=== PATIENT | female | born 1990 | race Caucasian/White ===

== ENCOUNTER → 2017-10-18 16:17 | Outpatient (CLI) | payer OTHER, SELFPAY ==
[2017-10-18 17:59] LABS: Absolute Lymphocyte Count 2.83 X10^3/ul (0.83-4.51); Absolute Neutrophil Count 7.1 X10^3/uL (2.0-7.7); Eosinophil# 0.06 X10^3/uL; Eosinophils% 0.6 % (0-5); Hemoglobin 11.2 g/dl (12.0-15.0); Lymphocyte # 2.83 X10^3/ul (4.0); Lymphocyte % 27.3 % (19-41); Mean Corpuscular Hgb 26.1 pg (27.0-32.0); Mean Corpuscular Volume 81.6 fL (81-99); Monocyte# 0.36 X10^3/uL; Monocyte% 3.5 % (0-10); Neutrophil # 7.11 X10^3/uL (2.7-7.7); Neutrophil % 68.4 % (47-70); POSITIVE COUNT NO; POSITIVE DIFFERENTIAL NO; POSITIVE MORPHOLOGY NO; Platelet Count 231 K/mm3 (150-450); RBC Distribution Width CV 16.1 % (11.6-14.6); RBC Distribution Width SD 47.9 fl (35.1-43.9); Red Blood Count 4.29 M/mm3 (4.2-5.4); White Blood Count 10.4 K/mm3 (4.4-11.0)
[2017-10-18 18:17] LABS: Color, Urine Yellow (Yellow); Glucose, Dipstick Normal (Normal); Ketone-Dipstick Negative (Negative); Leukocyte Esterase-Dipstick 500 /ul (Negative); Nitrite-Dipstick Negative (Negative); Occult Blood-Urine Negative /ul (Negative); Protein-Dipstick Negative (Negative); Urine Bilirubin Dipstick Negative (Negative); Urine Clarity Turbid (Clear); Urine Urobilinogen Normal (Normal)
[2017-10-18 18:19] LABS: Thyroid Stim Hormone (TSH) 3.73 uIU/mL (0.358-3.74)
[2017-10-18 18:55] LABS: HIV - WCH Non-Reactive (Nonreactive); Rubella IgG 14.3 IU/mL
[2017-10-20 07:13] LABS: HEPATITIS B SURFACE AG Negative (Negative); Hep C Antibodies <0.1 s/co ratio (0.0-0.9)
[2017-10-24 01:48] LABS: Prenatal RPR NONREACTIVE (NONREACTIVE)
== END ==
PROVIDERS: Visit Provider Obstetrics & Gynecology
DX: Z34.81 Encounter for supervision of other normal pregnancy, first trimester (principal)
CPT/HCPCS: 36415; 81002; 84443; 85025; 86703; 86762; 86803; 87340

== ENCOUNTER → 2018-03-04 14:13 | Outpatient (CLI) | payer OTHER, SELFPAY ==
[2018-03-04 15:51] LABS: Hematocrit 28.8 % (37-47); Hemoglobin 9.3 g/dl (12.0-15.0); Mean Corp Hgb Conc 32.3 g/gl (32-36); Mean Corpuscular Hgb 28.2 pg (27.0-32.0); Mean Corpuscular Volume 87.3 fL (81-99); Mean Platelet Vol. 11.6 fl (6.2-12.0); Platelet Count 189 K/mm3 (150-450); RBC Distribution Width CV 15.8 % (11.6-14.6); RBC Distribution Width SD 48.5 fl (35.1-43.9); White Blood Count 8.8 K/mm3 (4.4-11.0)
[2018-03-04 15:53] LABS: Glucose Challenge Gest 1H 50g 166 mg/dL (70-140)
[2018-03-04 15:55] LABS: Scan Indicated on CBC? Y/N NO
== END ==
PROVIDERS: Visit Provider Obstetrics & Gynecology
DX: Z34.83 Encounter for supervision of other normal pregnancy, third trimester (principal)
CPT/HCPCS: 36415; 82950; 85027; 86850

== ENCOUNTER → 2018-03-21 10:00 | Outpatient (CLI) | payer OTHER, SELFPAY ==
[2018-03-21 11:43] LABS: Glucose GTT-Gestation. Fasting 95 mg/dL (<105)
[2018-03-21 12:02] LABS: Glucose GTT-Gestational 1 Hr 230 mg/dL (<190)
[2018-03-21 14:04] LABS: Glucose GTT-Gestational 3 Hr 170 L (<145)
[2018-03-21 14:05] LABS: Glucose GTT-Gestational 2 Hr 162 mg/dL (<165)
== END ==
PROVIDERS: Family Provider Physician Assistant; PCP Physician Assistant; Visit Provider Obstetrics & Gynecology
DX: Z34.83 Encounter for supervision of other normal pregnancy, third trimester (principal); O24.912 Unspecified diabetes mellitus in pregnancy, second trimester; Z3A.00 Weeks of gestation of pregnancy not specified
CPT/HCPCS: 36415; 82951; 82952

== ENCOUNTER 2018-03-31 17:00 | Outpatient (RCR) | payer OTHER, SELFPAY | END 2018-04-01 23:59 | disposition home or self-care (01) | LOC: DC 17:00 | PROVIDERS: Family Provider Physician Assistant; PCP Physician Assistant; Visit Provider Obstetrics & Gynecology | DX: O24.410 Gestational diabetes mellitus in pregnancy, diet controlled (principal); Z71.3 Dietary counseling and surveillance | CPT/HCPCS: 97802; G0108 ==

== ENCOUNTER 2018-04-20 08:22 | Outpatient (RCR) | payer OTHER, SELFPAY | END 2018-05-06 23:59 | LOC: DC 08:22 | PROVIDERS: Family Provider Physician Assistant; PCP Physician Assistant; Visit Provider Obstetrics & Gynecology | DX: O24.410 Gestational diabetes mellitus in pregnancy, diet controlled (principal); Z71.3 Dietary counseling and surveillance ==

== ENCOUNTER → 2018-05-03 16:30 | Outpatient (CLI) | payer OTHER, SELFPAY ==
[2018-05-04 13:33] LABS: Group B Strep DNA By PCR Negative (Negative); Internal Control PASS; Probe Check PASS; Specimen Processing Control PASS
== END ==
PROVIDERS: Visit Provider Obstetrics & Gynecology
DX: Z36.85 Encounter for antenatal screening for Streptococcus B (principal)
CPT/HCPCS: 87081; 87653

== ENCOUNTER 2018-05-19 05:50 | Inpatient (IN) | payer OTHER, SELFPAY ==
[2018-05-18 16:56] VITALS: BMI 36.1
[2018-05-18 17:54] LABS: Hematocrit 33.1 % (37-47); Hemoglobin 10.6 g/dl (12.0-15.0); Mean Corpuscular Hgb 29.8 pg (27.0-32.0); Mean Platelet Vol. 12.5 fl (6.2-12.0); Platelet Count 132 K/mm3 (150-450); RBC Distribution Width CV 18.1 % (11.6-14.6); RBC Distribution Width SD 61.7 fl (35.1-43.9); Red Blood Count 3.56 M/mm3 (4.2-5.4); White Blood Count 7.8 K/mm3 (4.4-11.0)
[2018-05-18 18:08] LABS: Scan Indicated on CBC? Y/N NO
[2018-05-19] VITALS (28 sets, daily range): BP systolic 96–123; BP diastolic 48–69; PULSE 68–103; RESP 14–22; TEMP 36.1–37.1; O2SAT 96–99; BMI 36.1
[2018-05-19] MEDS: Lactated Ringers 1,000 ML 999 ML IV (05:55)
[2018-05-19 06:10] LABS: Bedside Glucose 106 mg/dL (70-110)
[2018-05-19] MEDS: Lactated Ringers 1,000 ML 150 ML IV (06:54)
[2018-05-19] MEDS: Sodium Citrate/Citric Acid 30 ML UDC PO (06:55)
[2018-05-19] MEDS: Cefazolin 2 GM in 0.9% Normal Saline 100 ML IV (07:15)
--- NOTE | 2018-05-19 07:34 | OP.PCM_ITS ---
Operative Report Date of Procedure: 05/19/18 Surgeon: Julian Paul MD, FACOG Engine House Helper: ISHA Kwan Anesthesia: Chapis Palma MD Anesthesia: Spinal with Duramorph Pre-op Diagnosis: Prior Section Post-Op Diagnosis: Prior Section Procedure: Repeat Low Transverse Cervical Caesarean Section Findings: Viable female with Apgars of 8/9 in an occiput anterior presentation with moderately stained meconium amniotic fluid and normal three- vessel placenta. Indication: This is a 28-year-old who presents for her kind at 39+ weeks gestation. care has otherwise been uneventful except for diet controlled gestational diabetes. The patient has been counseled regarding the risk and indications of this procedure including the possibility of bleeding infection and injury to surrounding structures such as bowel bladder. All questions were answered. Procedure: Patient was taken to the operating room where after spinal anesthesia was placed, the patient was prepped and draped in usual sterile fashion and a Muñoz catheter was placed. The abdomen was entered through the patient's prior Pfannenstiel incision and peritoneum was entered bluntly. After developing a bladder flap on the lower uterine segment a low transverse incision was made on the uterus and head was easily delivered onto the operative field the nose mouth and oropharynx were bulb suctioned. Subsequently a viable female infant was born with Apgars of 8/9. The infant was noted to cry move all extremities vigorously on the operative field. The umbilical cord was doubly clamped and ligated and infant handed to the nursery personnel who were present for the delivery. Placenta was delivered and noted to be 3 vessels and normal. Uterus was exteriorized and remaining placental tissue was removed. The uterus was then closed in 2 layers first with running locked 0 Vicryl suture followed by a second imbricating layer with 0 Vicryl suture. 0 Vicryl suture was then used in a horizontal mattress interrupted fashion to affect final hemostasis of the uterine incision line. Normal fallopian tubes and ovaries were visualized and the uterus was returned to the pelvis. Hemostasis was noted and rectus abdominis muscles were reapproximated in the midline with interrupted Number 0 Vicryl suture in a horizontal mattress fashion. Fascia was closed with running Number 1 PDS Strata fix suture. Subcutaneous tissue was irrigated with copious amouts of saline solution and then closed with running 3-0 Vicryl suture. Skin was closed with 4-0 monocryl suture in a running subcuticular fashion. Steri strips, telfa, and tape were placed across the incision. The patient tolerated the procedure well and was taken to the recovery room in satisfactory condition. Sponge, needle, and instrument counts were all reportedly correct. EBL was less than 500 cc. Ancef 2 gms IV was given prior to the procedure. Spicemen to Pathology: None Complications: None
--- NOTE | 2018-05-19 07:35 | DCINST_ITS ---
Discharge Diet: No Restrictions Discharge Activity: May not drive while taking narcotic pain medications., May Shower, May Take a Tub Bath May resume sexual activity in: 4-6 weeks Lifting Restrictions: 20 pounds Additional Activity Instructions:: Nothing in the vagina for 4-6 weeks. You may return to work/school in 6 weeks. Call your doctor if your incision/area has: Continuous Slow Oozing, Sudden Increased Bleeding, Increased Pain/ Swelling, Increased Redness, Foul Smelling Discharge Call your doctor if you observe: Fever of 101 or Higher, Inability to urinate, Inability to have a bowel movement, Using more than one pad per hour Additional Instructions: If you experience any of the following, contact your healthcare provider. * Bleeding that soaks a pad every hour for 2 hours * Unrelieved incision or abdominal pain * Swelling, redness, discharge or bleeding from your incision or episiotomy site * Your incision begins to separate * Problems urinating (including inability to urinate or burning while urinating) . * Visual changes * Severe headache * Flu-like symptoms * Pain or redness in one of both of your breasts * Pain, warmth, tenderness or swelling in your legs, especially the calf area * Frequent nausea and vomiting * Symptoms of depression or anxiety If you experience any of the following, call 911 or go to the nearest Emergency Room. * Chest pain * Problems breathing * Seizure activity * Partial or complete paralysis of a body part, slurred speech, weakness or drooping of the face, or a sudden inability to walk or hold your balance Allergies/Adverse Reactions: Allergies No Known Allergies Allergy (Verified 08/15/14 12:15) Medications to take at Discharge Ondansetron [Zofran] 8 mg PO Q8H PRN PRN 08/15/14 Vits [Prenatabs FA ] 1 tablet PO DAILY 08/15/14 Sertraline HCl [Zoloft] 100 mg PO DAILY 08/15/14 Ferrous Sulfate [Iron] 325 mg PO DAILY 05/18/18 Docusate Sodium [Colace] 100 mg PO BID PRN PRN #60 cap 05/19/18 Oxycodone [Oxyir] 5 mg PO Q6H PRN PRN 7 Days #20 tab 05/19/18 The following prescriptions were given: Oxycodone [Oxyir] 5 mg PO Q6H PRN PRN 7 Days #20 tab PRN Reason: Severe Pain (6-06/15) Docusate Sodium [Colace] 100 mg PO BID PRN PRN #60 cap PRN Reason: Constipation Follow-Up: Call to make an appointment with your doctor for an incision check in 1-2 weeks. You will also need a 6 week post- follow up appointment. Test results from this visit will be discussed in further detail at your follow- up appointment, if applicable. Please Follow Up With: Julian Paul MD - [phone] When: Call to make an appointment for an incision check in 2 weeks. Primary Care Physician: Elida Gonzalez PA [Primary Care Provider] -
[2018-05-19 09:10] LABS: Bedside Glucose 129 mg/dL (70-110)
[2018-05-19] MEDS: Lactated Ringers 1,000 ML 100 ML IV ×2 (09:11→18:50)
--- NOTE | 2018-05-19 11:47 | NURSING ---
moderate sized clot noted with assessment. fundus at umbilicus, firms with massage. complains of nausea with movement that improves when still.
--- NOTE | 2018-05-19 11:51 | NURSING ---
small clot noted with fundal massage. fundus firm and 1 below umbilicus. tolerated well. family at bedside
[2018-05-19] MEDS: Nalbuphine 10 MG/ML Ampul 5 MG IV ×2 (13:42→17:30)
[2018-05-19] MEDS: Ondansetron 4 MG/2 ML Vial IV (13:49)
[2018-05-19] MEDS: Ketorolac 30 MG/ML Syringe IV ×2 (14:44→21:09)
[2018-05-19] MEDS: 0.9% Saline Lock 10 ML Syringe IV ×2 (14:44→21:09)
[2018-05-19] MEDS: Cefazolin 1 GM/50 ML BAG IV ×2 (14:45→23:38)
--- NOTE | 2018-05-19 19:38 | NURSING ---
[id number] completed and pad changed for small amount old red. no clots noted. tolerated well
[2018-05-19] MEDS: Sertraline 100 MG Tablet PO (22:26)
[2018-05-20 01:15] VITALS: BP 98/50; PULSE 95; RESP 16; TEMP 36.1; O2SAT 98
[2018-05-20 03:00] VITALS: PULSE 97; RESP 18; O2SAT 98
[2018-05-20] MEDS: Ketorolac 30 MG/ML Syringe IV ×3 (03:05→15:24)
[2018-05-20 05:00] VITALS: BP 114/70; PULSE 78; PULSE 81; RESP 18; TEMP 36; O2SAT 97; O2SAT 98
[2018-05-20 06:55] LABS: Bedside Glucose 92 mg/dL (70-110)
[2018-05-20 07:02] LABS: Hematocrit 26.6 % (37-47); Hemoglobin 8.5 g/dl (12.0-15.0); Mean Corpuscular Hgb 30.5 pg (27.0-32.0); Mean Corpuscular Volume 95.3 fL (81-99); Mean Platelet Vol. 12.1 fl (6.2-12.0); Platelet Count 90 K/mm3 (150-450); RBC Distribution Width CV 18.4 % (11.6-14.6); RBC Distribution Width SD 60.8 fl (35.1-43.9); Red Blood Count 2.79 M/mm3 (4.2-5.4); White Blood Count 7.2 K/mm3 (4.4-11.0)
[2018-05-20 07:04] LABS: Scan Indicated on CBC? Y/N NO
[2018-05-20] MEDS: oxyCODONE 5 MG Tablet PO ×4 (07:44→23:34)
[2018-05-20 07:45] VITALS: BP 111/58; PULSE 85; RESP 16; TEMP 36.8
[2018-05-20] MEDS: Senna/Docusate Sodium 1 Tablet PO (07:45)
--- NOTE | 2018-05-20 08:41 | PCM.PN.OB ---
Subjective: Patient without complaints. Tolerating diet well. Pain well controlled. - Physical Exam Vital Signs AF, VSS Temp Pulse Resp BP Pulse Ox 98.2 F 85 16 111/58 L 98 05/20/18 07:45 05/20/18 07:45 05/20/18 07:45 05/20/18 07:45 05/20/18 05:00 Oxygen Delivery Method Room Air Weight: 191 lb 6.4 oz Body Mass Index (BMI) 36.1 Intake and Output for Last 24 Hours 05/18/18 05/19/18 05/20/18 23:59 23:59 23:59 Intake Total 2437 / 2437 350 / 350 Output Total 900 / 900 800 / 800 Balance 1537 / 1537 -450 / -450 Laboratory Tests Past 24 Hrs 05/19/18 05/20/18 09:55 06:45 WBC 7.2 RBC 2.79 L Hgb 8.5 L Hct 26.6 L MCV 95.3 MCH 30.5 MCHC 32.0 RDW 18.4 H RDW Differential 60.8 H Plt Count 90 L MPV 12.1 H Screen NEGATIVE Baby's Blood Type O POSITIVE Baby's CHEKO NEGATIVE POC Glucose 05/20/18 05/19/18 06:36 09:05 POC Glucose 92 129 H Wound is clean, dry, intact. Good urine output. Hemoglobin okay. Medical Necessity - Tobacco Use Smoking Status: Never smoker Assessment/Plan Doing well postoperative day #1 status post repeat . Continuing present care.
[2018-05-20] MEDS: 0.9% Saline Lock 10 ML Syringe IV ×2 (09:46→15:24)
[2018-05-20 14:00] VITALS: BP 104/71; PULSE 90; RESP 16; TEMP 36.8
[2018-05-20 20:40] VITALS: BP 99/53; PULSE 86; RESP 18; TEMP 36.8; O2SAT 95
[2018-05-20] MEDS: Ibuprofen 600 MG Tablet PO (21:21)
[2018-05-20] MEDS: Sertraline 100 MG Tablet PO (21:22)
[2018-05-21] MEDS: Acetaminophen 500 MG Tablet 1000 MG PO (01:34)
[2018-05-21 01:48] VITALS: BP 100/59; PULSE 72; RESP 16; TEMP 37; O2SAT 93
[2018-05-21] MEDS: Ibuprofen 600 MG Tablet PO (07:52)
[2018-05-21 08:52] VITALS: BP 114/67; PULSE 81; RESP 16; TEMP 36.9; O2SAT 97
[2018-05-21] MEDS: oxyCODONE 5 MG Tablet PO (09:34)
[2018-05-21] MEDS: Sertraline 100 MG Tablet PO (09:35)
--- NOTE | 2018-05-21 09:48 | PCM.PN.OB ---
Subjective: Patient without complaints. Tolerating diet well. Positive flatus. Ready to go home today. - Physical Exam Vital Signs Temp Pulse Resp BP Pulse Ox 98.4 F 81 16 114/67 97 05/21/18 08:52 05/21/18 08:52 05/21/18 08:52 05/21/18 08:52 05/21/18 08:52 Oxygen Delivery Method Room Air Weight: 191 lb 6.4 oz Body Mass Index (BMI) 36.1 Intake and Output for Last 24 Hours 05/19/18 05/20/18 05/21/18 23:59 23:59 23:59 Intake Total 2437 / 2437 350 / 350 Output Total 900 / 900 1200 / 1200 Balance 1537 / 1537 -850 / -850 Medical Necessity - Tobacco Use Smoking Status: Never smoker Assessment/Plan Doing well postoperative day #2 status post repeat . Will release to home today with routine instructions.
[2018-05-21 09:50] VITALS: BP 114/67; PULSE 81; RESP 16; TEMP 36.9; O2SAT 97
== END 2018-05-21 09:40 | disposition home or self-care (01) | DRG 766 ==
PROVIDERS: Admitting Provider Obstetrics & Gynecology; Family Provider Physician Assistant; PCP Physician Assistant; Visit Provider Obstetrics & Gynecology
PROC: 10D00Z1 Extraction of Products of Conception, Low, Open Approach (ICD-10-PCS; CPT 59514; principal; 2018-05-19 07:15)
DX: O34.211 Maternal care for low transverse scar from previous cesarean delivery (principal); Z37.0 Single live birth; O24.420 Gestational diabetes mellitus in childbirth, diet controlled; O77.0 Labor and delivery complicated by meconium in amniotic fluid; Z3A.39 39 weeks gestation of pregnancy
CPT/HCPCS: 82962; 85027; 85461; 86850; 86900; 90384; 99218; J7120; A4216; G0378; J2405; J2790

== ENCOUNTER → 2019-08-16 10:02 | Outpatient (CLI) | payer OTHER, SELFPAY ==
[2019-08-16 14:26] LABS: Chlamydia Trachomatis by PCR Negative (Negative); Neisserai gonorrhoeae by PCR Negative (Negative); Probe Check PASS; Sample Adequacy Control PASS; Specimen Processing Control PASS
[2019-08-18 17:06] LABS: HPV Reflexed? NOT INDICATED
== END ==
PROVIDERS: Visit Provider Obstetrics & Gynecology
DX: Z12.4 Encounter for screening for malignant neoplasm of cervix (principal); Z11.3 Encounter for screening for infections with a predominantly sexual mode of transmission
CPT/HCPCS: 87491; 87591; 88175; G0145

== ENCOUNTER → 2019-09-14 15:40 | Outpatient (CLI) | payer OTHER, SELFPAY ==
[2018-05-19 08:15] VITALS: BMI 36.1
[2019-09-14 16:58] LABS: Absolute Lymphocyte Count 2.12 X10^3/uL (0.83-4.51); Absolute Neutrophil Count 6.7 X10^3/uL (2.0-7.7); Basophil# 0.02 X10^3/uL; Basophil% 0.2 % (0-1); Eosinophil# 0.06 X10^3/uL; Eosinophils% 0.7 % (0-5); Hematocrit 35.2 % (37-47); Hemoglobin 11.2 g/dL (12.0-15.0); Lymphocyte # 2.12 X10^3/ul (4.0); Mean Corp Hgb Conc 31.8 g/dL (32-36); Mean Corpuscular Hgb 25.6 pg (27.0-32.0); Mean Corpuscular Volume 80.5 fL (81-99); Mean Platelet Vol. 12.3 fl (6.2-12.0); Monocyte# 0.31 X10^3/uL; Monocyte% 3.4 % (0-10); NRBC Flagged by Analyzer 0 % (0-5); Neutrophil # 6.66 X10^3/uL (2.7-7.7); Neutrophil % 72.4 % (47-70); Platelet Count 187 K/mm3 (150-450); RBC Distribution Width CV 17.1 % (11.6-14.6); RBC Distribution Width SD 49.9 fl (35.1-43.9); Red Blood Count 4.37 M/mm3 (4.2-5.4); White Blood Count 9.2 K/mm3 (4.4-11.0)
[2019-09-14 17:07] LABS: Color, Urine Yellow (Yellow); Glucose, Dipstick Normal (Normal); Ketone-Dipstick 5 mg/dl (Negative); Leukocyte Esterase-Dipstick 100 /ul (Negative); Nitrite-Dipstick Negative (Negative); Occult Blood-Urine Negative /ul (Negative); Protein-Dipstick Negative (Negative); Specific Gravity, Urine 1.025 (1.002-1.030); Urine Bilirubin Dipstick Negative (Negative); Urine Clarity Clear (Clear); Urine Urobilinogen Normal (Normal)
[2019-09-14 17:19] LABS: Thyroid Stim Hormone (TSH) 2.26 uIU/mL (0.358-3.74)
[2019-09-15 10:33] LABS: HIV - WCH Non-Reactive (Nonreactive); Hepatitis B Surface Antigen Non-Reactive (Nonreactive); Hepatitis C Antibody Non-Reactive (Nonreactive); Rubella IgG 9.4 IU/mL
[2019-09-21 02:55] LABS: Prenatal RPR NONREACTIVE (NONREACTIVE)
== END ==
PROVIDERS: Visit Provider Obstetrics & Gynecology
DX: Z34.81 Encounter for supervision of other normal pregnancy, first trimester (principal)
CPT/HCPCS: 36415; 81002; 84443; 85025; 86703; 86762; 86803; 87340

== ENCOUNTER → 2020-01-30 10:01 | Outpatient (CLI) | payer OTHER, SELFPAY ==
[2020-01-30 10:43] LABS: Glucose GTT-Gestation. Fasting 93 mg/dL (<105)
[2020-01-30 11:44] LABS: Glucose GTT-Gestational 1 Hr 199 mg/dL (<190)
[2020-01-30 13:21] LABS: Glucose GTT-Gestational 2 Hr 190 mg/dL (<165)
[2020-01-30 14:16] LABS: Glucose GTT-Gestational 3 Hr 173 L (<145)
== END ==
PROVIDERS: Visit Provider Obstetrics & Gynecology
DX: Z34.83 Encounter for supervision of other normal pregnancy, third trimester (principal)
CPT/HCPCS: 36415; 82951; 82952

== ENCOUNTER 2020-02-21 15:30 | Outpatient (RCR) | payer OTHER, SELFPAY | END 2020-02-21 23:59 | disposition home or self-care (01) | LOC: DC 15:30 | PROVIDERS: Visit Provider Obstetrics & Gynecology | DX: Z71.3 Dietary counseling and surveillance (principal); O24.419 Gestational diabetes mellitus in pregnancy, unspecified control; Z3A.00 Weeks of gestation of pregnancy not specified | CPT/HCPCS: 97802 ==

== ENCOUNTER 2020-03-12 12:05 | Outpatient (CLI) | payer OTHER, SELFPAY ==
[2020-03-12 12:23] VITALS: BMI 40.6
[2020-03-12 12:32] VITALS: BP 110/73; PULSE 107
[2020-03-12 12:47] VITALS: BP 110/73; PULSE 107; TEMP 37.1; O2SAT 96
[2020-03-12 15:06] LABS: Bedside Glucose 75 mg/dL (70-110)
--- NOTE | 2020-03-13 19:43 | OB.TRI.NOTE ---
History of Present Illness Was patient seen by the physician?: No Reason For Visit: Non-reassuring FHTs Date of Service: 03/12/20 Final ELTON: 04/12/20 Final ELTON Source: US <20 weeks Gestational age: 35 Weeks and 4 Days History of Present Illness: 29-year-old G2, P1 at 35+ weeks gestation moderate in the office for polyhydramnios and noted to have multiple late decelerations. She was sent to labor delivery or for extended monitoring. care remarkable for a prior section. Patient is also a well-controlled by diet gestational diabetic. Allergies No Known Allergies Allergy (Verified 03/12/20 12:27) Laboratory Studies: Laboratory Tests 03/12/20 Range/Units 14:59 POC Glucose 75 (70-110) mg/dL Physical Exam Vitals: Vital Signs Temp Pulse BP Pulse Ox 98.8 F 107 H 110/73 96 03/12/20 12:47 03/12/20 12:47 03/12/20 12:47 03/12/20 12:47 NST - FHR Rate Baby A NST Reactive:: Yes FHR Category:: Category I Impression/Plan 35+ week intrauterine with nonreassuring heart tones in the office who after extended monitoring showed no additional nonreassuring tracing. Patient is to return to the office the day after her visit to labor and delivery for repeat nonstress test and biophysical profile. Instructions given to call if there is any reduction in movement.
== END 2020-03-12 15:35 | disposition home or self-care (01) ==
LOC: WPOUT 12:17 → WP 12:17
PROVIDERS: PCP Physician Assistant; Referring Provider Obstetrics & Gynecology; Visit Provider Obstetrics & Gynecology
DX: O40.3XX0 Polyhydramnios, third trimester, not applicable or unspecified (principal); O36.8330 Maternal care for abnormalities of the fetal heart rate or rhythm, third trimester, not applicable or unspecified; O24.410 Gestational diabetes mellitus in pregnancy, diet controlled; Z98.891 History of uterine scar from previous surgery; Z3A.35 35 weeks gestation of pregnancy
CPT/HCPCS: 59025; 59050; 82962; 99218; G0378

== ENCOUNTER → 2020-03-20 10:39 | Outpatient (CLI) | payer OTHER, SELFPAY ==
[2020-03-12 12:23] VITALS: BMI 40.6
== END ==
PROVIDERS: PCP Physician Assistant; Visit Provider Obstetrics & Gynecology
DX: Z34.83 Encounter for supervision of other normal pregnancy, third trimester (principal)
CPT/HCPCS: 36415

== ENCOUNTER 2020-03-30 06:10 | Inpatient (IN) | payer OTHER, SELFPAY ==
[2020-03-30] VITALS (21 sets, daily range): BP systolic 92–145; BP diastolic 48–89; PULSE 61–128; RESP 16–36; TEMP 36.3–36.9; O2SAT 96–100; BMI 40.2
[2020-03-30] MEDS: Lactated Ringers 1,000 ML 999 ML IV (06:40)
[2020-03-30 06:55] LABS: Absolute Lymphocyte Count 1.77 X10^3/uL (0.83-4.51); Absolute Neutrophil Count 4.5 X10^3/uL (2.0-7.7); Basophil# 0.01 X10^3/uL; Basophil% 0.1 % (0-1); Eosinophil# 0.01 X10^3/uL; Eosinophils% 0.1 % (0-5); Hematocrit 33.5 % (37-47); Hemoglobin 11.1 g/dL (12.0-15.0); Lymphocyte # 1.77 X10^3/ul (4.0); Mean Corp Hgb Conc 33.1 g/dL (32-36); Mean Corpuscular Hgb 30.6 pg (27.0-32.0); Mean Corpuscular Volume 92.3 fL (81-99); Mean Platelet Vol. 13.7 fl (6.2-12.0); Monocyte# 0.37 X10^3/uL; Monocyte% 5.4 % (0-10); NRBC Flagged by Analyzer 0.4 % (0-5); Neutrophil # 4.54 X10^3/uL (2.7-7.7); Neutrophil % 66.9 % (47-70); Platelet Count 101 K/mm3 (150-450); RBC Distribution Width CV 18.5 % (11.6-14.6); RBC Distribution Width SD 62.3 fl (35.1-43.9); Red Blood Count 3.63 M/mm3 (4.2-5.4); White Blood Count 6.8 K/mm3 (4.4-11.0)
[2020-03-30] MEDS: Cefazolin 2 GM in 0.9% Normal Saline 100 ML IV (07:25)
[2020-03-30] MEDS: Acetaminophen 500 MG Tablet 1000 MG PO ×3 (07:30→18:58)
[2020-03-30] MEDS: Sodium Citrate/Citric Acid 30 ML UDC PO (07:30)
--- NOTE | 2020-03-30 07:50 | HP.PCM_ITS ---
- Problem List (1) 38 weeks gestation of Status: Acute (2) Rupture of membranes Status: Acute History Date of Admission: 03/30/20 Final ELTON: 04/12/20 Final ELTON Source: US <20 weeks Gestational age: 38 Weeks and 1 Days History of this : This is a 29 year-old, G [3], P [2002], at 38.1 weeks gestational age with c/o leaking of fluid and painful contractions. Surgical History: Surgical History (Last Updated 03/30/20 @ 07:[address] Lizeth Walls MD) Previous section Z98.891 2017 Allergies No Known Allergies Allergy (Verified 03/30/20 07:05) Home Medications: Home Medications Vits [Prenatabs FA ] 1 tablet PO DAILY 08/15/14 Sertraline HCl [Zoloft] 200 mg PO DAILY 08/15/14 Ferrous Sulfate [Iron] 325 mg PO BID 05/18/18 Smoking Status: Never smoker Alcohol: None Number of Fetus(es): 1 NST - FHR Rate Baby A Baseline: 145 Accelerations:: None, 15 x 15 Decelerations:: None NST Reactive:: Non-Reactive FHR Category:: Category II Uterine Activity:: 3/10 min History Past Pregnancies: Past Pregnancies Delivery Date Name GA/ Weeks Outcome Route Wt Infant Sex Labor Length Anesthesia Delivery Location Provider FOB 09/2014 39 [id number] F 0 Epidural [facility] Julian 05/2018 39 8lb F 0 Epidural [facility] Julian Labs: Mom's Problem List Problem Status Onset Code 38 weeks gestation of Acute Z3A.38 Rupture of membranes Acute Mom's Labs & Results 03/30/20 03/30/20 03/30/20 06:40 06:40 07:30 WBC 6.8 RBC 3.63 L Hgb 11.1 L Hct 33.5 L MCV 92.3 MCH 30.6 MCHC 33.1 RDW Std Deviation 62.3 H RDW Coeff of Doreen 18.5 H Plt Count 101 L MPV 13.7 H Immature Gran % (Auto) 1.500 H Neut % (Auto) 66.9 Lymph % (Auto) 26.0 [place] % (Auto) 5.4 Eos % (Auto) 0.1 Baso % (Auto) 0.1 Absolute Neuts (auto) 4.5 Absolute Lymphs (auto) 1.77 Nucleated RBC % 0.4 COVID-19 (OLIVIA) Pending Blood Type Pending Antibody Screen Pending Course Did the patient receive Yes care? Labs Blood Type: A RH: NEGATIVE RPR/VDRL/Syphilis Nonreactive Rubella status Equivocal HbSAg Negative Date Done: 09/14/19 Chlamydia Negative Gonorrhea Negative HIV/AIDS Non-Reactive Group B Strep: Not Done Current Obstetrical History Gestational Diabetes Yes: diet controlled Incompetent Cervix No Infertility No IUGR No Macrosomia Yes Hypertension/Pre-eclampsia No Placenta Previa/Abruption No PTL/PROM No Uterine anomaly No Oligohydramnios No Polyhydramnios Yes Multiple gestation No Past Medical History Asthma No Diabetes No Hypertension No Heart disease No Mitral valve prolapse No Neurologic/Seizure disorder/ No Migraines Kidney disease No Liver disease No Varicosities No Clotting disorders/Hx of DVT No Thyroid Dysfunction No Other medical diseases No Psychiatric disorders No Major trauma No Abnormal PAP smear No Sleep apnea No Mammogram in the last 2 years No Social History Marital Status: Alleged father Jese [place] Hx Smoking No Smoking Status Never smoker Expected Delivery Method: IVANA Section Number of Visits: 16 Physical Exam Vitals: Vital Signs Pulse BP Pulse Ox 80 145/89 H 96 03/30/20 06:30 03/30/20 06:29 03/30/20 06:30 General: Alert, Oriented x3, Cooperative, No apparent distress HEENT: Atraumatic, Normocephalic Cardiovascular: Regular Rhythm Lungs: Normal air movement Abdomen: Soft, Non Tender, Non-Distended, Gravid Extremities:: No edema Neurological: Neuro grossly intact COMPUTER LAB ASSISTANT: Normal external genitalia Estimated gestational size: Large for gestational age Presentation: Cephalic Cervix Dilation (cm): 2 Station: -1 Effacement (%): 60 Assessment/Plan All Active Problems 38 weeks gestation of (Acute) Rupture of membranes (Acute) This is a 29 year-old, G [3], P [2002], at 38.1 weeks gestational age hx GDMA1, prior sectionfor repeat, Cat II FHR -Discussed with patient procedural r/b/i. Previously signed consents for section in office. -Desires tubal sterilization. Discussed further sterilization risks including failure, ectopic and reviewed various contraceptive alternatives. I advised risk reducing bilateral salpingectomy. Pt agreeable to proceed. -FHR Cat II, acceleration present with scalp stimulation. -Proceed with repeat C/S.
[2020-03-30 09:07] LABS: Probe Check PASS; Specimen Processing Control PASS
[2020-03-30] MEDS: Oxytocin 30 units/NS 500 ml 30 UNITS/500 ML IV.SOLN 167 UNITS IV (09:25)
--- NOTE | 2020-03-30 09:32 | PCM.OPRPT ---
Problem List (1) 38 weeks gestation of Status: Acute (2) Rupture of membranes Status: Acute (3) Gestational diabetes Status: Acute Qualifiers: Gestational diabetes mellitus control: diet-controlled Trimester: third trimester Qualified Code(s): O24.410 - Gestational diabetes mellitus in , diet controlled Report of Operation Description of Surgical Findings:: FEMALE , 4625g Delivery Classification: IVANA Final ELTON: 04/12/20 Gestational age: 38 Weeks and 1 Days [place] doctor who attended delivery (if requested by OB): Ethel Amanda shortage worker: Vicky Nash Type of Anesthesia:: Spinal Date of Procedure: 03/30/20 Pre-Operative Diagnosis: 1. 38 1/7 weeks gestation. 2. Spontaneous rupture of membranes. 3. Prior section. 4. Gestational diabetes. 5. Sterilization request Post-Operative Diagnosis: 1. 38 1/7 weeks gestation. 2. Spontaneous rupture of membranes. 3. Prior section. 4. Gestational diabetes. 5. Sterilization request Indications: 29-year-old 3 para 2-0-0-2 who presents at 38-1/7 weeks gestational age with spontaneous rupture of membranes in latent labor. She has history of 2 prior sections as well as gestational diabetes with macrosomia and scheduled for repeat section. Patient also desired tubal sterilization. The patient was counseled. Plan to proceed with repeat section and opportunistic bilateral salpingectomy for tubal sterilization. Indications for : Repeat Elective , Desires elective sterilization Description of Procedure: The patient was taken to the operating room and spinal analgesia was administered. She is placed in a dorsal supine position with left lateral tilt. The perineum and abdomen were prepped and draped in sterile fashion. And the spinal was found to be adequate. A Pfannenstiel incision was made using a scalpel and brought down to incise the subcutaneous tissue and rectus fascia at the midline. Subcutaneous tissue was bluntly dissected off the fascia laterally. The fascial incision was dissected laterally and cephalad using curved Jessica scissors. The superior leaflet of the rectus fascia was grasped using Clinton clamps and bluntly dissected and sharply dissected from the underlying rectus muscle. In a similar fashion the inferior rectus fascia was dissected from the underlying muscle. The rectus muscles were bluntly at the midline. The peritoneum was identified and entered [sharply]. The bladder blade was placed into the abdomen and the vesicouterine peritoneal fold identified. The fold was incised and a bladder flap created. Bladder blade was then repositioned to the abdomen. A low transverse hysterotomy was made using the [Metzenbaum scissors] to level of the membranes. The hysterotomy was extended bluntly cephalad and caudad. The membranes were then ruptured revealing clear fluid. The head was elevated and brought to the level of the hysterotomy and the delivered revealing vigorous [female] infant. The cord was doubly clamped and cut after 30 seconds. The was passed to awaiting [nursery personnel]. The placenta was [expressed] from the uterus and appeared intact on inspection. The uterus was exteriorized and cleared of debris. The bladder blade was repositioned into the abdomen. The hysterotomy was then repaired using 0 Vicryl running lock suture. A second imbricating layer was also placed for additional hemostasis. Additional horizontal mattress sutures were placed and followed by compression with hemostasis obtained. Attention was turned to the right adnexa. The distal tubal fimbria were identified and the mesosalpinx was clamped, coagulated and transected with salpingectomy performed utilizing the LigaSure device. In similar fashion left salpingectomy was also performed. The hysterotomy was again inspected, serosal bleeding was controlled using electrocoagulation using the Bovie. On initial attempt to return the uterus and the next day to the abdomen the left mesosalpinx peritoneum ruptured and was followed by arteriolar bleeding. The mesosalpinx peritoneal edges were reapproximated while incorporating the bleeding vessel and electrocoagulated and sealed using the LigaSure with hemostasis attained. The uterus and adnexa were returned to the abdomen with no further bleeding. The anterior cul-de-sac was cleared of debris. The peritoneum was reapproximated using 2-0 Vicryl running suture. The rectus fascia was closed using 0 strata fix running suture. Capillary bleeding in the subcutaneous layer was controlled using the Bovie device. The subcutaneous tissue was reapproximated using 2-0 Vicryl. The skin was closed using 3-0 Monocryl subcuticularly by the ALL AROUND GEAR MACHINE OPERATOR under my supervision.n Mepilex occlusive dressing was placed over the incision. The fundus was firm. The patient was then transferred to the recovery room without complication. Sponge, instrument, and needle counts were correct ?2. Amniotic Membrane Rupture Type: Spontaneous Amniotic Fluid Description: Clear Placenta Disposition: [facility] Specimen(s) sent to pathology: 1. bilateral tubes, 2. placenta Drain: Muñoz to straight drain Fluids Replaced: 1500 ml Cord Entanglement: None Nuchal Cord Compression: Without compression Cord Vessel Description: 3 Vessels Esitmated Blood Loss (ml): 900 Gender: Female (1 minute): 9 (5 minute): 9 Delayed cord clamping: Yes Antibiotic Given: Ancef 2 grams IV x1, Zithromax 500 mg/5 mL X1 Pt instructed on risks of surgery: Bleeding, Anesthesia Risks, Infection, Permanency, Failure Rate of 1 to 2%, Injury to surrounding structure(s) including bowel and bladder, Availability of other non-permanent control options Complications: None - Admit VTE Documentation VTE Present on Admission: No VTE Mechan Device Prophylaxis: SCD's VTE Pharm Prophylaxis ordered?: Yes
[2020-03-30 09:40] LABS: Pathology Specimen OB SEE PATHOLOGY REPORT
[2020-03-30] MEDS: Lactated Ringers 1,000 ML 100 ML IV (12:57)
[2020-03-30] MEDS: 0.9% Saline Lock 10 ML Syringe IV ×2 (12:59→18:08)
[2020-03-30] MEDS: Ketorolac 30 MG/ML Syringe IV ×2 (13:37→20:51)
[2020-03-30] MEDS: Heparin Injection (Vial) 5,000 UNIT/ML VIAL 5000 UNIT SC ×2 (13:37→22:17)
[2020-03-30] MEDS: Lactated Ringers 500 ML 999 ML IV (16:26)
--- NOTE | 2020-03-30 16:31 | NURSING ---
Patient remains numb from spinal at this time. Able to move legs around bed but unable to lift legs off bed for ambulation. Patient states she feels like she is unable to safely ambulate at this time. Will continue to assess for ability to ambulate.
[2020-03-30] MEDS: Ondansetron 4 MG/2 ML Vial IV (18:08)
[2020-03-30] MEDS: DiphenhydrAMINE 25 MG Capsule PO (19:06)
[2020-03-30] MEDS: Sertraline 100 MG Tablet 200 MG PO (22:17)
[2020-03-31] VITALS (8 sets, daily range): BP systolic 119–136; BP diastolic 67–79; PULSE 71–87; RESP 14–18; TEMP 36.1–37; O2SAT 94–98
[2020-03-31] MEDS: Ketorolac 30 MG/ML Syringe IV ×2 (01:36→08:01)
[2020-03-31 05:23] LABS: Hematocrit 31.3 % (37-47); Hemoglobin 9.9 g/dL (12.0-15.0); Mean Corp Hgb Conc 31.6 g/dL (32-36); Mean Corpuscular Hgb 29.9 pg (27.0-32.0); Mean Corpuscular Volume 94.6 fL (81-99); Mean Platelet Vol. 13.3 fl (6.2-12.0); POSITIVE COUNT YES; POSITIVE MORPHOLOGY YES; Platelet Count 97 K/mm3 (150-450); RBC Distribution Width CV 18.9 % (11.6-14.6); RBC Distribution Width SD 65.3 fl (35.1-43.9); Red Blood Count 3.31 M/mm3 (4.2-5.4); White Blood Count 8.2 K/mm3 (4.4-11.0)
[2020-03-31 05:35] LABS: Scan Indicated on CBC? Y/N YES- FLAGS NOTED
[2020-03-31 05:59] LABS: Differential Comment SCANNED
--- NOTE | 2020-03-31 07:49 | PCM.PN.OB ---
Patient Problems: Active and Suspected Problems 38 weeks gestation of (Acute) Rupture of membranes (Acute) Gestational diabetes (Acute) Subjective: Tanvi is sore today. OOB, ambulating, voiding without difficulty now. Passing flatus. No nausea or vomiting and tolerates PO. Objective: AVSS - Physical Exam Vitals/I&O's: Vital Signs Temp Pulse Resp BP Pulse Ox 97.0 F L 72 18 127/70 H 97 03/31/20 04:54 03/31/20 06:45 03/31/20 06:45 03/31/20 04:54 03/31/20 06:45 Oxygen Delivery Method Room Air Weight: 96.706 kg Body Mass Index (BMI) 40.2 Intake and Output for Last 24 Hours 03/29/20 03/30/20 03/31/20 23:59 23:59 23:59 Intake Total 3944.15 / 3944.15 Output Total 375 / 375 300 / 300 Balance 3569.15 / 3569.15 -300 / -300 General: Alert, Oriented x3, Cooperative, No apparent distress HEENT: Atraumatic, Normocephalic Lungs: Clear to auscultation, Normal air movement Cardiovascular: Regular rate, Regular Rhythm Abdomen: Bowel Sounds Present, Soft, Non Tender, Non-Distended, - - Fundus firm and nontender, Extremities: No edema, No Calf Tenderness Neurological: Neuro grossly intact Psych/Mental Status: Normal Affect, Appropriate, Alert and oriented to time, place, person, mood and affect Laboratory Results 03/30/20 06:40: Blood Type A NEGATIVE, Antibody Screen NEGATIVE 03/30/20 07:30: COVID-19 (OLIVIA) Negative 03/30/20 10:10: Screen NEGATIVE, Baby's Blood Type A POSITIVE, Baby's CHEKO NEGATIVE 03/31/20 05:10: WBC 8.2, RBC 3.31 L, Hgb 9.9 L, Hct 31.3 L, MCV 94.6, MCH 29.9, MCHC 31.6 L, RDW Std Deviation 65.3 H, RDW Coeff of Doreen 18.9 H, Plt Count 97 L, MPV 13.3 H, Differential Comment SCANNED Current Medications Acetaminophen (Tylenol) 1,000 mg PO Q6H RAFAEL Bisacodyl (Dulcolax) 10 mg RECTAL UD PRN PRN Reason: If no BM Dextrose (D50w Syringe) 0 gm IV X1 PRN; Protocol PRN Reason: Hypoglycemia Diphenhydramine HCl (Benadryl) 25 mg PO Q6H PRN PRN PRN Reason: ITCHING Last Admin: 03/30/20 19:06 Dose: 25 mg Documented by: Glucagon () 1 mg IM .X1 PRN PRN Reason: Hypoglycemia Heparin Sodium (Porcine) (Heparin Na) 5,000 unit SC Q12 RAFAEL Last Admin: 03/30/20 22:17 Dose: 5,000 unit Documented by: Hydrocortisone (Hytone) 1 applic TOPICAL TID PRN PRN; Protocol PRN Reason: Discomfort Naloxone HCl 4 mg/ Dextrose 504 mls @ 0 mls/hr IV .Q0M PRN; Protocol PRN Reason: Respiratory depression Ibuprofen (Motrin) 600 mg PO Q6 RAFAEL Ketorolac Tromethamine (Toradol (Bkc)) 30 mg IV Q6H RAFAEL Stop: 03/31/20 08:01 Last Admin: 03/31/20 01:36 Dose: 30 mg Documented by: Measles/Mumps/Rubella Vaccine Live (M-M-R Ii) 0.5 ml SC .ONCE ONE Stop: 03/31/20 10:01 Methylergonovine Maleate (Methergine) 0.2 mg IM X1 PRN PRN Reason: Uterine Atony Nalbuphine HCl (Nubain) 5 mg IV Q3H PRN PRN PRN Reason: ITCHING Naloxone HCl (Narcan) 0.02 mg IV Q1M PRN PRN Reason: RR <10 and pt unresponsive Ondansetron HCl (Zofran) 4 mg IV Q4H PRN PRN PRN Reason: Nausea Last Admin: 03/30/20 18:08 Dose: 4 mg Documented by: Oxycodone HCl (Oxyir) 5 - 10 mg PO Q4H PRN PRN PRN Reason: Pain Score 4-10/10 Multivit/Folic Acid/Iron (Prenatabs Fa) 1 tablet PO DAILY@1200 RAFAEL Last Admin: 03/30/20 12:58 Dose: Not Given Documented by: Prochlorperazine Edisylate (Compazine Iv) 10 mg IV Q6H PRN PRN PRN Reason: NAUSEA Senna/Docusate Sodium (Senokot-S, Delma-Colace) 0 tablet PO DAILY RAFAEL Last Admin: 03/30/20 12:24 Dose: Not Given Documented by: Sertraline HCl (Zoloft) 200 mg PO QHS RAFAEL Last Admin: 03/30/20 22:17 Dose: 200 mg Documented by: Simethicone (Mylicon) 80 mg PO PCHS PRN PRN Reason: Indigestion/stomach pain Last Admin: 03/31/20 00:00 Dose: 80 mg Documented by: Sodium Chloride () 5 - 15 ml IV UD PRN PRN Reason: SALINE FLUSH Last Admin: 03/30/20 18:08 Dose: 10 ml Documented by: Medical Necessity - Tobacco Use Smoking Status: Never smoker Assessment/Plan All Active Problems 38 weeks gestation of (Acute) Rupture of membranes (Acute) Gestational diabetes (Acute) This is a 29 year-old, G [3], P [2001] POD#1 s/p RLTCS -Rh negative, Rh positive - for Rhogam -Rubella nonimmune - MMR -Routine postop care -hx GDM, impaired fasting glucose this am, repeat in am
[2020-03-31] MEDS: Acetaminophen 500 MG Tablet 1000 MG PO ×4 (08:00→20:16)
[2020-03-31] MEDS: 0.9% Saline Lock 10 ML Syringe IV (08:01)
[2020-03-31] MEDS: Heparin Injection (Vial) 5,000 UNIT/ML VIAL 5000 UNIT SC ×2 (09:37→22:07)
[2020-03-31] MEDS: Senna/Docusate Sodium 1 Tablet PO (09:37)
--- NOTE | 2020-03-31 10:43 | NURSING ---
0503 (Late Entry) Fasting BGT 120
[2020-03-31] MEDS: oxyCODONE 5 MG Tablet PO ×2 (12:04→20:16)
[2020-03-31] MEDS: Prenatal Vits Tablet 1 TABLET PO (12:05)
[2020-03-31] MEDS: Ibuprofen 600 MG Tablet PO ×2 (14:24→20:16)
--- NOTE | 2020-03-31 21:34 | PCM.DCCSEC ---
Discharge Diet: No Restrictions Discharge Activity: Return to Normal Activity, May not drive while taking narcotic pain medications., May Shower, - - No tub bath for 2 weeks May resume sexual activity in: 4-6 weeks Lifting Restrictions: 10 lb Call your doctor if your incision/area has: Continuous Slow Oozing, Sudden Increased Bleeding, Increased Pain/ Swelling, Increased Redness Suture Line Care: Avoid Pulling/Pushing Remove Dressing in (days):: 3 Cleanse incision/area with: Soap & Water Additional Instructions: If you experience any of the following, contact your healthcare provider. Bleeding that soaks a pad every hour for 2 hours Fever 100.4 or higher Unrelieved incision or abdominal pain Swelling, redness, discharge or bleeding from your incision or episiotomy site Your incision begins to separate Problems urinating (including inability to urinate or burning while urinating). Visual changes Severe headache Flu-like symptoms Pain or redness in one of both of your breasts Pain, warmth, tenderness or swelling in your legs, especially the calf area Frequent nausea and vomiting Symptoms of depression or anxiety If you experience any of the following, call 911 or go to the nearest Emergency Room. Chest pain Problems breathing Seizure activity Partial or complete paralysis of a body part, slurred speech, weakness or drooping of the face, or a sudden inability to walk or hold your balance Allergies/Adverse Reactions: Allergies No Known Allergies Allergy (Verified 03/30/20 07:05) Medications to take at Discharge Vits [Prenatabs FA ] 1 tablet PO DAILY 08/15/14 Sertraline HCl [Zoloft] 200 mg PO DAILY 08/15/14 Ferrous Sulfate [Iron] 325 mg PO BID 05/18/18 Ibuprofen [Motrin] 600 mg PO Q8H PRN #30 tab 03/31/20 Oxycodone [Oxyir] 1 tab PO Q6H PRN PRN 7 Days #20 tablet 03/31/20 Senna/Docusate Sodium [Senokot-S] 1 - 2 tab PO DAILY PRN #30 tab 03/31/20 The following prescriptions were given: Ibuprofen [Motrin] 600 mg PO Q8H PRN #30 tab PRN Reason: Pain Or Fever Transmission Status: Pending to [facility] 1417 Oxycodone [Oxyir] 1 tab PO Q6H PRN PRN 7 Days #20 tablet PRN Reason: Pain Score 4-10/10 Transmission Status: Sent to [facility] 1728 Senna/Docusate Sodium [Senokot-S] 1 - 2 tab PO DAILY PRN #30 tab PRN Reason: Constipation [facility] Follow-Up: Call to make an appointment with your doctor for an incision check in 1-2 weeks. You will also need a 6 week post- follow up appointment. Test results from this visit will be discussed in further detail at your follow-up appointment, if applicable. Please Follow Up With: Julian Paul MD - postop visit When: 1-2 weeks Please Follow Up With: Julian Paul MD When: 6 weeks Primary Care Physician: Elida Gonzalez PA [Primary Care Provider] -
[2020-03-31] MEDS: Sertraline 100 MG Tablet 200 MG PO (22:07)
[2020-04-01] MEDS: Ibuprofen 600 MG Tablet PO ×4 (01:42→20:47)
[2020-04-01] MEDS: Acetaminophen 500 MG Tablet 1000 MG PO ×4 (01:42→20:47)
[2020-04-01 01:44] VITALS: BP 121/64; PULSE 82; RESP 18; TEMP 36.8; O2SAT 97
[2020-04-01 07:49] VITALS: BP 132/60; PULSE 71; RESP 18; TEMP 36.7; O2SAT 100
[2020-04-01] MEDS: Senna/Docusate Sodium 1 Tablet PO (07:54)
[2020-04-01 08:16] LABS: Pathology Specimen OB SEE PATHOLOGY REPORT
--- NOTE | 2020-04-01 08:57 | PCM.PN.BLA ---
Progress Note Visited patient room - reports she is in the bathroom attempting bowel movement. STROKE Vital Signs/Narrative: Vital Signs Temp Pulse Resp BP Pulse Ox 04/01/20 07:49 98.0 F 71 18 132/60 H 100
--- NOTE | 2020-04-01 09:11 | PCM.PN.BLA ---
Progress Note Again visited patient and not in room. Vitals signs reviewed and am fasting glucose 83mg/dL. Per nursing staff, patient without complaints this morning, doing well, pain controlled with scant lochia. Routine post-op care. STROKE Vital Signs/Narrative: Vital Signs Temp Pulse Resp BP Pulse Ox 04/01/20 07:49 98.0 F 71 18 132/60 H 100
[2020-04-01] MEDS: Heparin Injection (Vial) 5,000 UNIT/ML VIAL 5000 UNIT SC ×2 (10:32→22:19)
[2020-04-01] MEDS: Prenatal Vits Tablet 1 TABLET PO (10:32)
[2020-04-01 11:10] LABS: Bedside Glucose 83 mg/dL (70-110)
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
[2020-04-01 13:52] VITALS: BP 122/55; PULSE 89; RESP 18; TEMP 36.3
[2020-04-01 20:49] VITALS: BP 133/71; PULSE 89; RESP 16; TEMP 36.6
[2020-04-01] MEDS: Sertraline 100 MG Tablet 200 MG PO (22:19)
[2020-04-02] MEDS: Ibuprofen 600 MG Tablet PO ×3 (01:56→14:31)
[2020-04-02] MEDS: Acetaminophen 500 MG Tablet 1000 MG PO ×3 (01:57→14:31)
[2020-04-02 01:59] VITALS: BP 142/82; PULSE 84; RESP 18; TEMP 36.2; O2SAT 98
--- NOTE | 2020-04-02 08:33 | PCM.PN.OB ---
Patient Problems: Active and Suspected Problems Sterilization (Acute) delivery delivered (Acute) 38 weeks gestation of (Acute) Rupture of membranes (Acute) Gestational diabetes (Acute) Subjective: No issues overnight. Passing flatus, had a bowel movement. Pain controlled. Tolerates PO. She is bottlefeeding. Denies heavy lochia. Notes increased food and ankle swelling. Objective: AVSS - Physical Exam Vitals/I&O's: Vital Signs Temp Pulse Resp BP Pulse Ox 97.2 F L 84 18 142/82 H 98 04/02/20 01:59 04/02/20 01:59 04/02/20 01:59 04/02/20 01:59 04/02/20 01:59 Oxygen Delivery Method Room Air Weight: 96.706 kg Body Mass Index (BMI) 40.2 Intake and Output for Last 24 Hours 03/31/20 04/01/20 04/02/20 23:59 23:59 23:59 Output Total 800 / 800 Balance -800 / -800 General: Alert, Oriented x3, Cooperative, No apparent distress HEENT: Atraumatic, Normocephalic Lungs: Clear to auscultation, Normal air movement Cardiovascular: Regular rate, Regular Rhythm, Normal S1, Normal S2 Abdomen: Bowel Sounds Present, Soft, Non Tender, Non-Distended, - - Fundus firm and nontender, lochia scant, incisional dressing c/d/i, pannal edema Extremities: No Calf Tenderness, - - +2 b/l LE pitting edema Neurological: Neuro grossly intact Psych/Mental Status: Normal Affect, Appropriate, Alert and oriented to time, place, person, mood and affect Laboratory Results 04/01/20 07:24: POC Glucose 83 Current Medications Acetaminophen (Tylenol) 1,000 mg PO Q6H PENDING SALE TO [facility] Last Admin: 04/02/20 01:57 Dose: 1,000 mg Documented by: Bisacodyl (Dulcolax) 10 mg RECTAL UD PRN PRN Reason: If no BM Dextrose (D50w Syringe) 0 gm IV X1 PRN; Protocol PRN Reason: Hypoglycemia Diphenhydramine HCl (Benadryl) 25 mg PO Q6H PRN PRN PRN Reason: ITCHING Last Admin: 03/30/20 19:06 Dose: 25 mg Documented by: Glucagon () 1 mg IM .X1 PRN PRN Reason: Hypoglycemia Heparin Sodium (Porcine) (Heparin Na) 5,000 unit SC Q12 PENDING SALE TO [facility] Last Admin: 04/01/20 22:19 Dose: 5,000 unit Documented by: Hydrocortisone (Hytone) 1 applic TOPICAL TID PRN PRN; Protocol PRN Reason: Discomfort Naloxone HCl 4 mg/ Dextrose 504 mls @ 0 mls/hr IV .Q0M PRN; Protocol PRN Reason: Respiratory depression Ibuprofen (Motrin) 600 mg PO Q6H PENDING SALE TO [facility] Last Admin: 04/02/20 01:56 Dose: 600 mg Documented by: Methylergonovine Maleate (Methergine) 0.2 mg IM X1 PRN PRN Reason: Uterine Atony Nalbuphine HCl (Nubain) 5 mg IV Q3H PRN PRN PRN Reason: ITCHING Naloxone HCl (Narcan) 0.02 mg IV Q1M PRN PRN Reason: RR <10 and pt unresponsive Ondansetron HCl (Zofran) 4 mg IV Q4H PRN PRN PRN Reason: Nausea Last Admin: 03/30/20 18:08 Dose: 4 mg Documented by: Oxycodone HCl (Oxyir) 5 - 10 mg PO Q4H PRN PRN PRN Reason: Pain Score 4-10/10 Last Admin: 03/31/20 20:16 Dose: 10 mg Documented by: Multivit/Folic Acid/Iron (Prenatabs Fa) 1 tablet PO DAILY@1200 PENDING SALE TO [facility] Last Admin: 04/01/20 10:32 Dose: 1 tablet Documented by: Prochlorperazine Edisylate (Compazine Iv) 10 mg IV Q6H PRN PRN PRN Reason: NAUSEA Senna/Docusate Sodium (Senokot-S, Delma-Colace) 0 tablet PO DAILY PENDING SALE TO [facility] Last Admin: 04/01/20 07:54 Dose: 1 tablet Documented by: Sertraline HCl (Zoloft) 200 mg PO QHS PENDING SALE TO [facility] Last Admin: 04/01/20 22:19 Dose: 200 mg Documented by: Simethicone (Mylicon) 80 mg PO PCHS PRN PRN Reason: Indigestion/stomach pain Last Admin: 03/31/20 00:00 Dose: 80 mg Documented by: Sodium Chloride () 5 - 15 ml IV UD PRN PRN Reason: SALINE FLUSH Last Admin: 03/31/20 08:01 Dose: 10 ml Documented by: Medical Necessity - Tobacco Use Smoking Status: Never smoker Assessment/Plan All Active Problems Sterilization (Acute) delivery delivered (Acute) 38 weeks gestation of (Acute) Rupture of membranes (Acute) Gestational diabetes (Acute) This is a 29 year-old, G [3], P [2002] POD#3 s/p RLTCS -Rh negative, infant Rh positive -Rhogam given -Rubella nonimmune - MMR -Routine postop care -Plan for dc home today, infant remains in special care nursery. Will d/c to hotel if not discharged.
[2020-04-02] MEDS: Senna/Docusate Sodium 1 Tablet PO (08:45)
[2020-04-02 09:35] VITALS: BP 130/75; PULSE 66; RESP 16; TEMP 36.3; O2SAT 97
[2020-04-02] MEDS: Heparin Injection (Vial) 5,000 UNIT/ML VIAL 5000 UNIT SC (10:53)
[2020-04-02] MEDS: Prenatal Vits Tablet 1 TABLET PO (10:53)
[2020-04-02 14:33] VITALS: BP 136/76; PULSE 77; RESP 16; TEMP 36.2
[2020-04-03 07:37] LABS: Bedside Glucose 99 mg/dL (70-110)
[2020-04-03 07:42] LABS: Bedside Glucose 137 mg/dL (70-110)
[2020-04-03 07:48] LABS: Bedside Glucose 120 mg/dL (70-110)
== END 2020-04-02 16:05 | disposition home or self-care (01) | DRG 785 ==
PROVIDERS: Admitting Provider Obstetrics & Gynecology; PCP Physician Assistant; Visit Provider Obstetrics & Gynecology
DX: O99.214 Obesity complicating childbirth (principal); E66.01 Morbid (severe) obesity due to excess calories; O69.81X0 Labor and delivery complicated by cord around neck, without compression, not applicable or unspecified; O24.420 Gestational diabetes mellitus in childbirth, diet controlled; Z3A.38 38 weeks gestation of pregnancy; Z37.0 Single live birth; O75.89 Other specified complications of labor and delivery; N83.8 Other noninflammatory disorders of ovary, fallopian tube and broad ligament
CPT/HCPCS: 59025; 59050; 82962; 85025; 85027; 85461; 86850; 86900; 86901; 87635; 88302; 88307; 90384; 94799; 99218; J7120; A4216; G0378; J2405; J2790; U0003

== ENCOUNTER 2021-12-16 16:39 | Emergency (ER) | payer OTHER, SELFPAY ==
[2021-12-16 16:40] VITALS: PULSE 108; RESP 18; TEMP 36.6; O2SAT 100; BMI 43.7
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
[2021-12-16 17:10] LABS: Absolute Neutrophil Count 5.9 X10^3/uL (2.0-7.7); Basophil# 0.03 X10^3/uL; Basophil% 0.3 % (0-1); Eosinophil# 0.05 X10^3/uL; Eosinophils% 0.5 % (0-5); Hematocrit 35.2 % (37-47); Hemoglobin 11.3 g/dL (12.0-15.0); Mean Corp Hgb Conc 32.1 g/dL (32-36); Mean Corpuscular Hgb 26.2 pg (27.0-32.0); Mean Corpuscular Volume 81.7 fL (81-99); Mean Platelet Vol. 10.8 fl (6.2-12.0); Monocyte# 0.43 X10^3/uL; Monocyte% 4.4 % (0-10); NRBC Flagged by Analyzer 0 % (0-5); Neutrophil # 5.85 X10^3/uL (2.7-7.7); Neutrophil % 60.3 % (47-70); Platelet Count 210 K/mm3 (150-450); RBC Distribution Width CV 15.5 % (11.6-14.6); RBC Distribution Width SD 45.8 fl (35.1-43.9); Red Blood Count 4.31 M/mm3 (4.2-5.4); White Blood Count 9.7 K/mm3 (4.4-11.0)
[2021-12-16 17:23] LABS: Internal QC Validated? YES +Cl - CLEAR BKGD; Pregnancy, Serum, hCG Quali. NEGATIVE Negative
[2021-12-16 17:24] LABS: Anion Gap 11 (5-15); BUN 15 mg/dL (7-18); BUN/Creat Ratio 13.6 RATIO (10-20); Calcium,Total 9.1 mg/dL (8.5-10.1); Chloride 104 mmol/L (98-107); EST Glomerular Filtration Rate 61 mL/min (>60); Est Glom Filt Rate - Afr Amer 74 mL/min (>60); Glucose 158 mg/dL (74-106); Potassium 3.2 mmol/L (3.5-5.1); Sodium Level 138 mmol/L (136-145)
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
--- NOTE | 2021-12-16 17:30 | ED.RN ---
1700-pt in to er awake and alert. c/o lt arm pain and some neck pain but denies any loc. pt tearful and shaking and saying i home the other person is alright dropping kids off with parents and will be in. iv established. drsg to lt upper arm remains d&i. fingers warm and mobile. vs stable. pt updated on orders and all that will be happening
[2021-12-16 17:41] VITALS: BP 144/77; PULSE 109; RESP 16; O2SAT 100
[2021-12-16 18:00] VITALS: BP 126/92; PULSE 106; RESP 16; O2SAT 98
[2021-12-16] MEDS: Lidocaine 1% (20 ml mdv) 20 ML Vial INFILT (20:05)
[2021-12-16 20:08] VITALS: BP 129/89; PULSE 110; RESP 18
== END 2021-12-16 20:08 | disposition home or self-care (01) ==
PROVIDERS: Emergency Provider Emergency Medicine; PCP Physician Assistant; Visit Provider Emergency Medicine
DX: S40.812A Abrasion of left upper arm, initial encounter (principal); V42.5XXA Car driver injured in collision with two- or three-wheeled motor vehicle in traffic accident, initial encounter; Y93.9 Activity, unspecified; Y92.9 Unspecified place or not applicable; F41.9 Anxiety disorder, unspecified; Z79.899 Other long term (current) drug therapy
CPT/HCPCS: 70450; 71250; 72125; 73060; 74176; 80048; 84703; 85025; 93005; 99285; A4216

== ENCOUNTER → 2023-03-23 | Outpatient (CLI) | payer OTHER, SELFPAY ==
[2023-03-26 18:08] LABS: HPV APTIMA, High Risk Negative (Negative)
== END | disposition home or self-care (01) ==
LOC: LABSPEC 14:40
PROVIDERS: PCP Physician Assistant; Visit Provider Nurse Practitioner Women's Health
DX: Z12.4 Encounter for screening for malignant neoplasm of cervix (principal)
CPT/HCPCS: 87624; 88175; G0145